=== PATIENT | female | born 1940 | race Caucasian/White ===

== ENCOUNTER 2016-08-07 15:27 | Observation (INO) | payer MEDICARE, MEDICAID ==
[~2016-08-07 15:27] MED LIST: ACETAMINOPHEN325 MG PO; ACIDOPHILUS1 CAP PO; ALDACTONE25 MG PO; ALEVE220 MG; AMBIEN10 M1 PO; AMBIEN10 MG PO; AMBIEN5 MG PO; ANTI DIARRHEAL PO; ASPIRIN81 M1 CH; ASPIRIN81 MG; ATIVAN0.5 M1 PO; ATIVAN0.5 MG GT; ATIVAN0.5 MG PO; ATIVAN1 MG PO; ATIVAN2 MG/M1 PO; AUGMENTIN; AUGMENTIN 400-100 M; AUGMENTIN PO; BETAPACE80 M1 PO; BISOPROLOL FUMAR5 M1 PO; BLACK COHOSH540 MG; BLACK COHOSH540 MG PO; CALCIUM 500 WIT1 TAB; CEFEPIME-D2 GM/50 ML IV; CELEXA20 MG PO; CILOSTAZOL100 M1 PO; CIPRO250 M2 PO; CIPROFLOXACIN500 MG PO; CLINDAMYCIN HC300 MG PO; COUMADIN; COUMADIN PO; COUMADIN1 M1 PO; COUMADIN1 MG PO; COUMADIN2 MG PO; COUMADIN3 M1 PO; COUMADIN3 MG PO; COUMADIN4 M1 PO; COUMADIN4 MG PO; COUMADIN5 MG GT; COUMADIN6 MG PO; CYMBALTA30 MG PO; CYMBALTA60 MG PO; D3 + K2 DOTS 1,1 TAB PO; DEXAMETHASONE4 M1 PO; DIGESTIVE ADVANTAGE; DOXYCYCLINE HY100 MG PO; ENTERIC ASPIRIN81 MG PO; ENTOCORT EC3 MG PO; ESTAZOLAM PO; ESTAZOLAM1 MG; FENTANYL C100 MCG/2 SL; FEOSOL325 M1 PO; FERROUS SULFAT324 MG PO; FIBER0.52 G; FLORASTOR250 MG PO; FOLIC ACID1 M1 PO; FUROSEMIDE20 MG PO; GABAPENTIN400 M2 PO; HYDROCODON-ACE1 EA17 PO; HYDROCODON-ACE1 EAC8 PO; IMDUR30 MG PO; IMODIUM A-D1 MG/5 ML PO; IMODIUM A-D2 M3 PO; IMODIUM2 MG GT; IMODIUM2 MG PO; INVANZ1 G/VIA1 IV; IRON INFUSIONS; ISOSORBIDE MONO30 M4 PO; JEVITY1000 M1 PO; K DUR PO; K-DUR10 MEQ PO; KADIAN10 MG PO; KETAMINE PO; KLOR-CON 1010 ME1 PO; LANOXIN125 MC3 PO; LASIX; LASIX20 M1 PO; LASIX20 MG PO; LEVAQUIN500 MG PO; LEXAPRO20 M1 PO; LIDOCAINE-PRILO30 G1 TP; LISINOPRIL20 MG PO; LORAZEPAM0.5 MG PO; LORTAB ELIXIR480 ML; LORTAB ELIXIR480 ML PO; LOVENOX40 MG/0.4 SQ; LOVENOX60 MG/0.6 SQ; MACRODANTIN50 MG PO; METHADONE10 MG/5 ML GT; METHADONE10 MG/ML GT; METOCLOPRAMIDE10 MG; MULTI VITAMIN1 EAC1 PO; MULTIVITAMIN1 TAB; MULTIVITAMIN1 TAB PO; NAPROSYN500 MG; NEURONTIN300 M1 PO; NEURONTIN300 MG PO; NEURONTIN400 MG PO; NEURONTIN600 MG PO; NIFEDICAL XL30 M1 PO; NIFEDICAL XL30 MG PO; NIFEDICAL XL60 MG; NORCO 5/325 TAB1 TAB PO; NORCO 5/3251 TA1 PO; NORCO 5/3251 TAB PO; NORCO 7.5/325 T1 TAB PO; NORVASC5 MG; OSMOLITE 1.21500 ML GT; PAIN RELIEVER500 MG PO; PENTOXIFYLLINE400 M2 PO; PLAQUENIL200 M1 PO; PLAQUENIL200 MG PO; PLAVIX75 MG PO; PLETAL100 M1 PO; PLETAL100 M2 PO; PLETAL50 MG PO; POTASSIUM; POTASSIUM CHLO10 MEQ PO; PRILOSEC40 MG PO; PRINIVIL2.5 MG PO; PROBIOTIC1 EACH GT; PROCARDIA XL30 MG PO; PROCARDIA XL60 MG PO; PROTONIX40 M1 PO; PROTONIX40 M2 PO; PROTONIX40 MG; PROTONIX40 MG PO; RANITIDINE HCL150 MG PO; RESTORIL30 MG PO; SEPTRA DS TABLE1 TAB PO; SERAX10 MG PO; SOTALOL80 MG PO; SULFAMYLON SOL250 ML EXT; TRAMADOL HCL50 MG PO; TRAZODONE HCL50 M1 PO; TRENTAL400 MG PO; TYLENOL325 MG PO; TYLENOL650 MG PO; VANCOMYCIN1 GM/VIA1 IV; VIACTIV TA1 TAB.CHEW; VITAMIN D-32000 UNIT; VITAMIN D31000 UNIT GT; VITAMIN D31000 UNIT PO; VITAMIN D32000 UNI2 PO; VITAMIN D32000 UNIT PO; VITAMIN K100 MCG PO; WARFARIN; WARFARIN SODIUM1 M2 PO; WELCHOL625 M1 PO; WELCHOL625 MG PO; XIFAXAN550 M1 PO; XIFAXAN550 MG PO; ZEBETA5 M1 PO; ZEGERID 40 MG P1 PKT PEG; ZEGERID GT; ZOCOR20 M1 PO; ZOCOR20 MG PO; ZYRTEC10 M3 PO; [UNRECOGNIZED DRUG - MIXTURE] PO; [UNRECOGNIZED DRUG - OTHER]; [UNRECOGNIZED DRUG - OTHER] PO
[2016-08-07] MEDS ORDERED: TYLENOL EXTRA500 M1 PO (17:16)
[2016-08-07] MEDS ORDERED: LASIX20 M1 PO (17:16)
[2016-08-07] MEDS ORDERED: HYDROCODON-ACE1 EA17 PO (17:18)
[2016-08-07] MEDS ORDERED: ISOSORBIDE MONO30 M4 PO (17:18)
[2016-08-07] MEDS ORDERED: LIDOCAINE-PRILO30 G1 TOP (17:20)
[2016-08-07] MEDS ORDERED: NIFEDIPINE PO (17:21)
[2016-08-07] MEDS ORDERED: PROTONIX40 M2 PO (17:22)
[2016-08-07] MEDS ORDERED: ONDANSETRON HCL4 M2 PO (17:22)
[2016-08-07] MEDS ORDERED: CILOSTAZOL100 M1 PO (17:23)
[2016-08-07] MEDS ORDERED: SILVADENE20 G1 TOP (17:24)
[2016-08-07] MEDS ORDERED: POTASSIUM CHLO10 ME1 PO (17:24)
[2016-08-07 20:55] LABS: INR 1.1 INR (0.9-1.1); PROTHROMBIN TIME 12.4 SECONDS (9.0-13.6)
[2016-08-08 05:03] LABS: BASO % 0.3 % (0-2); EOS % 0.7 % (0-7); EOSINOPHIL ABSOLUTE COUNT 0.1 tho/cmm (0.0-0.7); HCT-HEMATOCRIT 28.9 % (34.0-49.0); HGB-HEMOGLOBIN 9.4 gm/dl (12.0-15.5); IMMATURE GRANULOCYTES ABSOLUTE 0.01 tho/cmm (0-0.03); IMMATURE GRANULOCYTES PERCENT 0.1 % (0-0.3); LYMPH % 17.5 % (20-45); LYMPH ABSOLUTE COUNT 1.2 tho/cmm (0.8-4.5); MCH (MEAN CORPUSCULAR HGB) 29.6 pg (28.0-32.0); MCHC MEAN CORPUSCULAR HGB CONC 32.5 % (32.0-36.0); MCV (MEAN CELL VOLUME) 90.9 fl (82.0-96.0); MEAN PLATELET VOLUME 10.3 cmc (9.4-12.4); MONO % 9.8 % (0-12); MONOCYTE ABSOLUTE COUNT 0.7 tho/cmm (0.0-1.2); NEUTROPHILS % 71.6 % (40-80); PLATELET COUNT 116 tho/cmm (150-450); RED BLOOD COUNT 3.18 mil/cmm (4.00-5.20); RED CELL DISTRIBUTION WIDTH 14.1 % (12.4-16.4); WHITE BLOOD COUNT 6.9 tho/cmm (4.0-10.0)
[2016-08-08 05:19] LABS: ALBUMIN 2.4 g/dl (3.5-5.0); ALKALINE PHOSPHATASE 55 U/L (33-138); ALT/SGPT 15 U/L (12-78); ANION GAP 11 mmol/L (0-20); AST/SGOT 17 U/L (10-40); BILIRUBIN,TOTAL 0.2 mg/dl (0-1.5); BLOOD UREA NITROGEN 21 mg/dl (6-24); CALCIUM 7.5 mg/dl (8.5-10.5); CARBON DIOXIDE-VENOUS 23 mmol/L (22-32); CHLORIDE 114 mmol/l (96-110); CREATININE 1.32 mg/dl (0.50-1.10); GLUCOSE 110 mg/dL (70-110); MAGNESIUM 1.5 mg/dl (1.8-2.6); PHOSPHOROUS 1.5 mg/dl (2.5-4.9); POTASSIUM 3.4 mmol/L (3.7-5.1); SODIUM 145 mmol/L (135-145); eGFR VALUE FOR BLACK 45 mL/Min
[2016-08-08] MEDS ORDERED: TRAZODONE HCL50 M1 PO (09:55)
[2016-08-08] MEDS ORDERED: MAGNESIUM OXID400 M1 PO (13:16)
[2016-08-08] MEDS ORDERED: PHOS-NAK PACKET1 PK1 PO (13:18)
[2016-08-08] MEDS ORDERED: LANOXIN125 MC3 PO (13:21)
[2016-08-08] MEDS ORDERED: ISOSORBIDE MONO30 M4 PO (13:48)
[2016-09-02] MEDS ORDERED: [UNRECOGNIZED DRUG - REMARK] (12:43)
[2016-10-25] MEDS ORDERED: COUMADIN3 M1 PO (06:09)
[2016-11-10] MEDS ORDERED: LOVENOX40 MG/0.1 SC (10:40)
[2016-11-10] MEDS ORDERED: COUMADIN3 M1 PO (12:52)
[2016-12-05] MEDS ORDERED: COUMADIN2 M1 PO (17:35)
[2016-12-05] MEDS ORDERED: COUMADIN1 M1 PO (17:38)
[2016-12-05] MEDS ORDERED: PREPARATION H C TOP (17:56)
== END 2016-08-08 14:45 ==
LOC: CCU 15:27
PROVIDERS: ADMIT Internal Medicine
DX: E87.6 Hypokalemia (principal); M34.1 CR(E)ST syndrome; I25.10 Atherosclerotic heart disease of native coronary artery without angina pectoris; I73.00 Raynaud's syndrome without gangrene; R13.10 Dysphagia, unspecified; R19.7 Diarrhea, unspecified; I12.9 Hypertensive chronic kidney disease with stage 1 through stage 4 chronic kidney disease, or unspecified chronic kidney disease; N18.9 Chronic kidney disease, unspecified; N17.9 Acute kidney failure, unspecified; K21.9 Gastro-esophageal reflux disease without esophagitis; Z79.01 Long term (current) use of anticoagulants; Z79.82 Long term (current) use of aspirin; Z79.899 Other long term (current) drug therapy; Z88.5 Allergy status to narcotic agent; Z88.1 Allergy status to other antibiotic agents; Z91.048 Other nonmedicinal substance allergy status; Z89.422 Acquired absence of other left toe(s); Z89.512 Acquired absence of left leg below knee; Z90.89 Acquired absence of other organs; Z96.641 Presence of right artificial hip joint; Z98.890 Other specified postprocedural states
CPT/HCPCS: G0378; G0379; G8978-GP-CJ; G8979-GP-CI; G8980-GP-CJ; G8987-GO-CJ; G8988-GO-CI; G8989-GO-CJ; J3480

== ENCOUNTER 2016-09-04 07:17 | Inpatient (IN) | payer MEDICARE, MEDICAID ==
[~2016-09-04 07:17] MED LIST changes: +LIDOCAINE-PRILO30 G1 TOP; +MAGNESIUM OXID400 M1 PO; +NIFEDIPINE PO; +ONDANSETRON HCL4 M2 PO; +PHOS-NAK PACKET1 PK1 PO; +POTASSIUM CHLO10 ME1 PO; +SILVADENE20 G1 TOP; +TYLENOL EXTRA500 M1 PO; +[UNRECOGNIZED DRUG - REMARK]
[2016-09-04 08:38] LABS: PROTHROMBIN TIME 11.3 SECONDS (9.0-13.6)
[2016-09-04 08:45] LABS: ANION GAP 13 mmol/L (0-20); BLOOD UREA NITROGEN 32 mg/dl (6-24); CALCIUM 7.7 mg/dl (8.5-10.5); CARBON DIOXIDE-VENOUS 27 mmol/L (22-32); CHLORIDE 107 mmol/l (96-110); GLUCOSE 96 mg/dL (70-110); POTASSIUM 4.6 mmol/L (3.7-5.1); SODIUM 142 mmol/L (135-145); eGFR VALUE FOR BLACK 27 mL/Min
[2016-09-04] MEDS ORDERED: ALDACTONE25 M1 PO (09:11)
[2016-09-04] MEDS ORDERED: LASIX20 M1 PO (09:12)
--- NOTE | 2016-09-04 20:56 | NUR ---
VIRTUAL CARE NOTE: PT. IN BED, STATES SHE HAS OCCASIONAL NAUSEA, ALTHOUGH STATES SHE DOESN'T FEEL GOOD AND IS NEEDING SOME PAIN MEDS. WILL PAGE RN ON UNIT AND ALLOW FOR REST PERIOD. INSTRUCTED TO PT. TO CALL FOR FUTURE NEEDS AND NOT TO EAT OR DRINK UNTIL NAUSEA SUBSIDES. STATES VERBAL UNDERSTANDING. RN ON UNIT PAGED.
[2016-09-05 01:34] LABS: BASO % 0.1 % (0-2); HCT-HEMATOCRIT 28.5 % (34.0-49.0); HGB-HEMOGLOBIN 9.2 gm/dl (12.0-15.5); IMMATURE GRANULOCYTES ABSOLUTE 0.03 tho/cmm (0-0.03); IMMATURE GRANULOCYTES PERCENT 0.2 % (0-0.3); LYMPH % 6.1 % (20-45); LYMPH ABSOLUTE COUNT 0.8 tho/cmm (0.8-4.5); MCH (MEAN CORPUSCULAR HGB) 30.1 pg (28.0-32.0); MCHC MEAN CORPUSCULAR HGB CONC 32.3 % (32.0-36.0); MCV (MEAN CELL VOLUME) 93.1 fl (82.0-96.0); MEAN PLATELET VOLUME 10.5 cmc (9.4-12.4); MONO % 4.2 % (0-12); MONOCYTE ABSOLUTE COUNT 0.5 tho/cmm (0.0-1.2); NEUTROPHIL ABSOLUTE COUNT 11.5 tho/cmm (1.6-8.0); NEUTROPHIL-AUTOMATED 11.5 tho/cmm (1.6-8.0); NEUTROPHILS % 89.4 % (40-80); PLATELET COUNT 124 tho/cmm (150-450); RED BLOOD COUNT 3.06 mil/cmm (4.00-5.20); RED CELL DISTRIBUTION WIDTH 14.6 % (12.4-16.4); WHITE BLOOD COUNT 12.9 tho/cmm (4.0-10.0)
[2016-09-05 01:46] LABS: ANION GAP 15 mmol/L (0-20); BLOOD UREA NITROGEN 31 mg/dl (6-24); CALCIUM 7.5 mg/dl (8.5-10.5); CARBON DIOXIDE-VENOUS 24 mmol/L (22-32); CHLORIDE 107 mmol/l (96-110); MAGNESIUM 1.7 mg/dl (1.8-2.6); PHOSPHOROUS 3.7 mg/dl (2.5-4.9); POTASSIUM 4.5 mmol/L (3.7-5.1); SODIUM 141 mmol/L (135-145); eGFR VALUE FOR BLACK 29 mL/Min
[2016-09-05 01:47] LABS: GLUCOSE 160 mg/dL (70-110)
--- NOTE | 2016-09-05 15:23 | NUR ---
virtual care note: was going to call in to visit with pt but notice that she is sleeping. will not disturb patient. will continue to monitor. electronic chart reviewed.
--- NOTE | 2016-09-05 20:57 | NUR ---
VIRTUAL CARE NOTE: ASSESSMENT DEFERRED. PT EITHER WITH AIDE OR SLEEPING. WILL CONTINUE WITH CHART REVIEW.
[2016-09-06 05:33] LABS: ANION GAP 12 mmol/L (0-20); BLOOD UREA NITROGEN 28 mg/dl (6-24); CALCIUM 7.3 mg/dl (8.5-10.5); CARBON DIOXIDE-VENOUS 26 mmol/L (22-32); CHLORIDE 106 mmol/l (96-110); GLUCOSE 196 mg/dL (70-110); MAGNESIUM 1.6 mg/dl (1.8-2.6); PHOSPHOROUS 1.6 mg/dl (2.5-4.9); SODIUM 140 mmol/L (135-145); eGFR VALUE FOR BLACK 43 mL/Min
[2016-09-06 05:36] LABS: CREATININE 1.35 mg/dl (0.50-1.10)
--- NOTE | 2016-09-06 14:10 | NUR ---
VIRTUAL CARE NOTE: CHECKED IN ON PT AT THIS TIME. SHE IS RESTING IN BED. STATES SHE HAS BEEN EXPERIENCING SOME NAUSEA AND HAS HAD A FEW LOOSE STOOLS OVERNIGHT. REQUESTING IMMODIUM AND ZOFRAN--RELAYED THESE REQUESTS TO HER BEDSIDE NURSE, VELMA RUBIO. PT STATES SHE IS SATISFIED WITH HER CARE. ALSO STATES SHE HAS BEEN UP FOR A WALK TODAY, THOUGH SHE DOES FEEL VERY WEAK. WILL CONTINUE TO MONITOR. ELECTRONIC CHART REVIEWED.
--- NOTE | 2016-09-06 18:49 | NUR ---
VIRTUAL CARE NOTE: ASSESSMENT DEFERRED. PT. SLEEPING.
--- NOTE | 2016-09-06 20:04 | NUR ---
VIRTUAL CARE NOTE: ASSESSMENT DEFERRED. PT. SLEEPING.
[2016-09-07 05:40] LABS: HCT-HEMATOCRIT 27.9 % (34.0-49.0); HGB-HEMOGLOBIN 8.8 gm/dl (12.0-15.5); MCV (MEAN CELL VOLUME) 95.5 fl (82.0-96.0); RED CELL DISTRIBUTION WIDTH 14.5 % (12.4-16.4)
[2016-09-07 05:45] LABS: INR 0.9 INR (0.9-1.1); PROTHROMBIN TIME 10.9 SECONDS (9.0-13.6)
[2016-09-07 05:53] LABS: ANION GAP 11 mmol/L (0-20); BLOOD UREA NITROGEN 26 mg/dl (6-24); CALCIUM 7.2 mg/dl (8.5-10.5); CARBON DIOXIDE-VENOUS 25 mmol/L (22-32); CHLORIDE 106 mmol/l (96-110); CREATININE 1.16 mg/dl (0.50-1.10); GLUCOSE 160 mg/dL (70-110); POTASSIUM 4.3 mmol/L (3.7-5.1); SODIUM 138 mmol/L (135-145); eGFR VALUE FOR BLACK 52 mL/Min
--- NOTE | 2016-09-07 10:21 | NUR ---
VN/LEADER ROUNDING-VISITED WITH PATIENT SHE LAY IN BED-STATES PAIN IS STILL THERE BUT CONTROLLED WITH GABRIEL' CARE(THE RN). PATIENT STATES THE STOOLS HAVE SLOWED DOWN SOME WITH THE TF RATE BEING TURNED DOWN. PATIENT HAS NO FURTHER QUESTIONS OR CONCERNS OTHER THAN BEING TIRED AND SLEEPY AT THIS TIME.
--- NOTE | 2016-09-07 12:58 | NUR ---
VN NOTE-PER BEDSIDE NURSE VELMA COURTNEY WAS ALSO NOTIFIED ON THE DDIMER AND PROBNP RESULTS. DR TAO WAS ROUNDING AND SAW THE RESULTS AND ORDERS A CT ANGIO.
--- NOTE | 2016-09-07 21:30 | NUR ---
VIRTUAL CARE NOTE: ASSESSMENT DEFERRED, PT. SLEEPING.
[2016-09-08 05:58] LABS: EOS % 0.4 % (0-7); HCT-HEMATOCRIT 24.1 % (34.0-49.0); HGB-HEMOGLOBIN 7.6 gm/dl (12.0-15.5); IMMATURE GRANULOCYTES ABSOLUTE 0.05 tho/cmm (0-0.03); INR 1.1 INR (0.9-1.1); LYMPH % 12.8 % (20-45); LYMPH ABSOLUTE COUNT 0.7 tho/cmm (0.8-4.5); MCH (MEAN CORPUSCULAR HGB) 29.9 pg (28.0-32.0); MCHC MEAN CORPUSCULAR HGB CONC 31.5 % (32.0-36.0); MCV (MEAN CELL VOLUME) 94.9 fl (82.0-96.0); MEAN PLATELET VOLUME 10.1 cmc (9.4-12.4); MONO % 8.8 % (0-12); MONOCYTE ABSOLUTE COUNT 0.5 tho/cmm (0.0-1.2); PLATELET COUNT 155 tho/cmm (150-450); PROTHROMBIN TIME 12.3 SECONDS (9.0-13.6); RED BLOOD COUNT 2.54 mil/cmm (4.00-5.20); RED CELL DISTRIBUTION WIDTH 14.7 % (12.4-16.4); WHITE BLOOD COUNT 5.2 tho/cmm (4.0-10.0)
[2016-09-08 06:11] LABS: ALB/GLOB RATIO 0.8 (0.8-2.0); ALBUMIN 1.8 g/dl (3.5-5.0); ALKALINE PHOSPHATASE 49 U/L (33-138); ANION GAP 10 mmol/L (0-20); AST/SGOT 12 U/L (10-40); BILIRUBIN,TOTAL 0.3 mg/dl (0-1.5); BLOOD UREA NITROGEN 28 mg/dl (6-24); CALCIUM 7.4 mg/dl (8.5-10.5); CARBON DIOXIDE-VENOUS 28 mmol/L (22-32); CHLORIDE 107 mmol/l (96-110); CREATININE 1.18 mg/dl (0.50-1.10); MAGNESIUM 1.8 mg/dl (1.8-2.6); PHOSPHOROUS 2.7 mg/dl (2.5-4.9); POTASSIUM 4.7 mmol/L (3.7-5.1); SODIUM 140 mmol/L (135-145); eGFR VALUE FOR BLACK 51 mL/Min
[2016-09-08 06:19] LABS: ALT/SGPT 9 U/L (12-78); GLUCOSE 79 mg/dL (70-110)
--- NOTE | 2016-09-08 11:35 | NUR ---
VIRTUAL CARE NOTE: PT WITH AIDE AT THIS TIME AND UNAVAILABLE FOR VN ROUND
--- NOTE | 2016-09-08 14:07 | NUR ---
VIRTUAL CARE NOTE: PT ASLEEP AT THIS TIME
--- NOTE | 2016-09-08 19:32 | NUR ---
VIRTUAL CARE NOTE: STATES PAIN IS LOW AND WAS ABLE TO PASS FLATUS TODAY. STATES ALSO IS TOLERATING HIS FULL LIQUID DIET. DENIES FURTHER NEEDS AT THIS TIME. INSTRUCTED TO CALL FOR FURTHER NEEDS AND ALSO TO KEEP UP THE GREAT WORK WITH POST-OP INSTRUCTIONS HE IS DOING.
--- NOTE | 2016-09-08 19:43 | NUR ---
VIRTUAL CARE NOTE: ASSESSMENT DEFERRED. PT. SLEEPING.
[2016-09-09 05:57] LABS: INR 1.1 INR (0.9-1.1); PROTHROMBIN TIME 13.2 SECONDS (9.0-13.6)
[2016-09-09 06:11] LABS: ANION GAP 14 mmol/L (0-20); BLOOD UREA NITROGEN 30 mg/dl (6-24); CALCIUM 7.4 mg/dl (8.5-10.5); CARBON DIOXIDE-VENOUS 26 mmol/L (22-32); CHLORIDE 104 mmol/l (96-110); CREATININE 1.33 mg/dl (0.50-1.10); POTASSIUM 4.2 mmol/L (3.7-5.1); SODIUM 140 mmol/L (135-145); eGFR VALUE FOR BLACK 44 mL/Min
[2016-09-09 06:18] LABS: GLUCOSE 69 mg/dL (70-110)
[2016-09-09 06:20] LABS: MAGNESIUM 1.8 mg/dl (1.8-2.6)
--- NOTE | 2016-09-09 11:27 | NUR ---
VIRTUAL CARE NOTE: PT RESTING ON BED, STATES DOING OK NOT EATING MUCH YET DUE TO POOR APPETITE, THE PLAN IS TO RESTART TF TODAY, PT OK FOR STUDENT SERVICES DEAN VISIT REGARDING DIET CONCERNS. PLAN OF CARE AND DISCHARGE PLAN DISCUSSED, WILL DC WITH C AND HOME INFUSION. PT DENIES ANY NEEDS AT THIS TIME.
--- NOTE | 2016-09-09 21:45 | NUR ---
VIRTUAL CARE NOTE: ASSESSMENT DEFERRED. PT SLEEPING X3. WILL CONTINUE WITH CHART REVIEW.
[2016-09-10 08:35] LABS: BASO % 0.2 % (0-2); EOS % 0.2 % (0-7); HCT-HEMATOCRIT 26.7 % (34.0-49.0); HGB-HEMOGLOBIN 8.7 gm/dl (12.0-15.5); IMMATURE GRANULOCYTES ABSOLUTE 0.08 tho/cmm (0-0.03); IMMATURE GRANULOCYTES PERCENT 1.3 % (0-0.3); INR 1.1 INR (0.9-1.1); LYMPH % 14.9 % (20-45); LYMPH ABSOLUTE COUNT 0.9 tho/cmm (0.8-4.5); MCH (MEAN CORPUSCULAR HGB) 30.2 pg (28.0-32.0); MCHC MEAN CORPUSCULAR HGB CONC 32.6 % (32.0-36.0); MCV (MEAN CELL VOLUME) 92.7 fl (82.0-96.0); MEAN PLATELET VOLUME 9.8 cmc (9.4-12.4); MONO % 7.2 % (0-12); MONOCYTE ABSOLUTE COUNT 0.5 tho/cmm (0.0-1.2); NEUTROPHIL ABSOLUTE COUNT 4.8 tho/cmm (1.6-8.0); NEUTROPHIL-AUTOMATED 4.8 tho/cmm (1.6-8.0); NEUTROPHILS % 76.2 % (40-80); PLATELET COUNT 174 tho/cmm (150-450); PROTHROMBIN TIME 13.2 SECONDS (9.0-13.6); RED BLOOD COUNT 2.88 mil/cmm (4.00-5.20); RED CELL DISTRIBUTION WIDTH 14.2 % (12.4-16.4); WHITE BLOOD COUNT 6.3 tho/cmm (4.0-10.0)
[2016-09-10 08:42] LABS: ANION GAP 12 mmol/L (0-20); BLOOD UREA NITROGEN 25 mg/dl (6-24); CALCIUM 7.4 mg/dl (8.5-10.5); CARBON DIOXIDE-VENOUS 30 mmol/L (22-32); CHLORIDE 102 mmol/l (96-110); CREATININE 1.39 mg/dl (0.50-1.10); POTASSIUM 3.8 mmol/L (3.7-5.1); SODIUM 140 mmol/L (135-145); eGFR VALUE FOR BLACK 42 mL/Min
[2016-09-10 08:59] LABS: GLUCOSE 118 mg/dL (70-110)
[2016-09-11 04:04] LABS: INR 1.1 INR (0.9-1.1); PROTHROMBIN TIME 12.6 SECONDS (9.0-13.6)
[2016-09-11 04:11] LABS: ANION GAP 10 mmol/L (0-20); BLOOD UREA NITROGEN 22 mg/dl (6-24); CALCIUM 7.1 mg/dl (8.5-10.5); CARBON DIOXIDE-VENOUS 31 mmol/L (22-32); CHLORIDE 101 mmol/l (96-110); CREATININE 1.39 mg/dl (0.50-1.10); GLUCOSE 134 mg/dL (70-110); POTASSIUM 3.8 mmol/L (3.7-5.1); SODIUM 138 mmol/L (135-145); eGFR VALUE FOR BLACK 42 mL/Min
--- NOTE | 2016-09-11 10:16 | NUR ---
VIRTUAL NURSE NOTE: PT RESTING ON BED, STATES DOING OK TODAY, TOLERATES TUBE FEEING WELL SO FAR, HAS ORDER TO DC HOME TODAY. DISCHARGE PLAN DISCUSSED, PT WILL HAVE [facility] AND HOME INFUSION AT DISCHARGE. AWAITING FOR MORE MD TO SIGN OFF FOR DISCHARGE. VN COTACTED TRACK LAYING EQUIPMENT OPERATOR AND HOME HEALTH CORDINATOR FOR THE PLAN OF DISCHARGE TODAY.
--- NOTE | 2016-09-11 16:00 | NUR ---
VIRTUAL NURSE NOTE: PT CAN'T HEAR VN WELL, DISCHARGE TEACHING DONE AT BEDSIDE. INFORMATION GIVEN TO PT, ALL QUESTONS ANSWERED. VN CALLED PHARMACY SPOKE TO [facility] PHARMACIST TO GO THROUGH THE MED LIST, PT WANTS TO KNOW WHAT MED CAN BE CRUSHED AND WHAT CAN'T. INFORMATION WRITTEN DOWN ON PT'S MED DISCCHARGE LIST. PT WILL DC HOME WITH [facility] FOR TF AND [facility] WILL ASSIST WITH CARES AT HOME. PT DENIES FURTHER NEEDS, QUESTIONS, OR CONCERNS. INFORMED FLOOR NURSE DISCHARGE TEACHING DONE.
[2016-10-25] MEDS ORDERED: COUMADIN3 M1 PO (06:09)
[2016-11-10] MEDS ORDERED: LOVENOX40 MG/0.1 SC (10:40)
[2016-11-10] MEDS ORDERED: COUMADIN3 M1 PO (12:52)
[2016-12-05] MEDS ORDERED: COUMADIN2 M1 PO (17:35)
[2016-12-05] MEDS ORDERED: COUMADIN1 M1 PO (17:38)
[2016-12-05] MEDS ORDERED: PREPARATION H C TOP (17:56)
== END 2016-09-11 16:25 | disposition home health service (06) | DRG 264 ==
LOC: SRG 07:17 → SHSA 07:18 → 5WD 14:20
PROVIDERS: Hospitalist; Internal Medicine; Physician Assistant Medical; Surgery; ADMIT Internal Medicine
PROC: 0D1A0Z4 Bypass Jejunum to Cutaneous, Open Approach (ICD-10-PCS; principal; 2016-09-04)
PROC: 0D160ZA Bypass Stomach to Jejunum, Open Approach (ICD-10-PCS; 2016-09-04)
PROC: 0DNT4ZZ (ICD-10-PCS; 2016-09-04)
DX: I13.0 Hypertensive heart and chronic kidney disease with heart failure and stage 1 through stage 4 chronic kidney disease, or unspecified chronic kidney disease (principal); J96.01 Acute respiratory failure with hypoxia; E43 Unspecified severe protein-calorie malnutrition; N18.4 Chronic kidney disease, stage 4 (severe); I27.2 Other secondary pulmonary hypertension; I31.3 Pericardial effusion (noninflammatory); N17.9 Acute kidney failure, unspecified; M34.1 CR(E)ST syndrome; M34.9 Systemic sclerosis, unspecified; I50.32 Chronic diastolic (congestive) heart failure; Z68.1 Body mass index [BMI] 19.9 or less, adult; Z79.01 Long term (current) use of anticoagulants; M81.0 Age-related osteoporosis without current pathological fracture; G47.33 Obstructive sleep apnea (adult) (pediatric); Z88.1 Allergy status to other antibiotic agents; Z88.8 Allergy status to other drugs, medicaments and biological substances; I25.10 Atherosclerotic heart disease of native coronary artery without angina pectoris; I48.2 Chronic atrial fibrillation; K22.4 Dyskinesia of esophagus; I73.00 Raynaud's syndrome without gangrene; R62.7 Adult failure to thrive; I34.0 Nonrheumatic mitral (valve) insufficiency; Z79.82 Long term (current) use of aspirin; F32.9 Major depressive disorder, single episode, unspecified; D63.1 Anemia in chronic kidney disease; I73.9 Peripheral vascular disease, unspecified; E78.5 Hyperlipidemia, unspecified; M19.90 Unspecified osteoarthritis, unspecified site; M26.601 Right temporomandibular joint disorder, unspecified; L97.519 Non-pressure chronic ulcer of other part of right foot with unspecified severity; I95.1 Orthostatic hypotension; E86.9 Volume depletion, unspecified; R00.0 Tachycardia, unspecified
CPT/HCPCS: C1769; C1894; C8924; G8978-GP-CI; G8979-GP-CI; G8987-GO-CI; G8988-GO-CI; G8989-GO-CI; J0690; J1650; J1940; J1956; J2270; J2405; J2765; J3010; J7030; J7121; Q9967